=== PATIENT | female | born 2000 | race Caucasian/White ===

== ENCOUNTER 2018-11-08 22:26 | Emergency (ER) | payer BC, SELFPAY ==
[2018-11-08 22:26] VITALS: BP 130/77; PULSE 88; RESP 15; TEMP 37.1; BMI 28.1
--- NOTE | 2018-11-08 22:50 | ED.DCSUM_ITS ---
History of Present Illness Chief Complaint: General Illness Informant: Patient Pain: Pelvic Pain Onset: Days - 3 Context: Gradual Onset Timing: Waxes and wanes Quality: Cramping Current Severity: Mild Maximum Severity: Mild Relieved by: NSAIDS Issue: Vaginal bleeding Context: Gradual Onset Timing: Intermittent Current Severity: Mild Maximum Severity: Mild Associated Symptoms: Negative for: Dysuria, Frequency, Urgency, Hematuria Sexually: Active Control: IUD Narrative: Patient had a copper IUD placed at the local [facility] 3 days ago, and subsequently started having vaginal spotting which turned into mild/light bleeding less than a menstrual cycle, as well as pelvic cramping, 5-10 bouts of watery nonbloody diarrhea per day, nausea, fevers. They have been subjective. She also works at a daycare. There have been no known sick contacts with the symptoms there. She is healthy otherwise. She denies any other vaginal discharge. Past Medical History - Allergies and Home Meds Allergies/Adverse Reactions: Allergies No Known Allergies Allergy (Verified 11/08/18 22:30) Primary Care Physician: Will Spann MD [Primary Care Provider] - Smoking Status: Never smoker Review of Systems General: Reports: Fever, Malaise, Subjective. Denies: Chills, Sweats Eyes: Denies: Visual changes - bilaterally, Diplopia ENT: Denies: Rhinorrhea, Sore throat Cardiovascular: Denies: Chest pain, Palpitations Respiratory: Denies: Dyspnea, Cough, Dyspnea on exertion Gastrointestinal: Reports: Abdominal pain, Nausea, Diarrhea. Denies: Vomiting, Melena, Hematochezia Genitourinary: Reports: - - vaginal bleeding. Denies: Dysuria, Hematuria, Frequency Musculoskeletal: Denies: Back pain, Extremity Pain Skin: Denies: Rash, Wounds Neurological: Denies: Headache, Weakness, Numbness Physical Exam Vital Signs/Narrative: Vital Signs Temp Pulse Resp BP 11/08/18 22:26 98.7 F 88 15 130/77 H Diagnostic/Tx/Re-eval - Medical Decision/Diagnostic Studies Patient was treated with IV fluids, Zofran, Bentyl, Toradol. She feels better. I discussed with a nurse ornamental metal erector on-call for Dr. Tucker, she states that aside from the diarrhea, these are pretty typical symptoms after placement of a copper IUD. She is welcome to follow-up, and given their office information. Given a prescription for Zofran, I suspect she has a viral syndrome on top of her s ymptoms from IUD placement. ED Disposition - Plan for ED Patient: Disposition: Home or Assisted Living Diagnosis: Gastroenteritis, Vaginal bleeding Instructions: GASTROENTERITIS, Viral (4y-Adult), Control: IUD (Intrauterine Device) Prescriptions: Ondansetron [Zofran] 8 mg PO Q8H PRN #12 tab PRN Reason: Nausea/Vomiting Prescription Printed Referrals: Liss Tucker DO [STAFF PHYSICIAN] - 1 Week if not improving
[2018-11-08] MEDS: 0.9% Normal Saline 1,000 ML 999 ML IV (22:58)
[2018-11-08] MEDS: Dicyclomine 10 MG Capsule 20 MG PO (22:58)
[2018-11-08] MEDS: Ondansetron 4 MG/2 ML Vial IV (22:59)
[2018-11-08] MEDS: Ketorolac 30 MG/ML Syringe IV (23:00)
[2018-11-09 00:26] VITALS: BP 127/73; PULSE 78; RESP 16; O2SAT 100
== END 2018-11-09 00:28 | disposition home or self-care (01) ==
PROVIDERS: Emergency Provider Emergency Medicine; Family Provider Family Medicine; PCP Family Medicine
DX: K52.9 Noninfective gastroenteritis and colitis, unspecified (principal); N93.9 Abnormal uterine and vaginal bleeding, unspecified
CPT/HCPCS: 96361; 96374; 96375; 99283; J7030; J2405

== ENCOUNTER 2019-05-14 20:06 | Emergency (ER) | payer BC, SELFPAY ==
[2019-05-14 20:06] VITALS: BP 139/74; PULSE 82; RESP 18; TEMP 37.1; O2SAT 98; BMI 31.7
--- NOTE | 2019-05-14 20:21 | ED.DCSUM_ITS ---
History of Present Illness Chief Complaint: Sore Throat Informant: Patient Onset: Days Current Severity: Moderate Maximum Severity: Moderate Narrative: She presents with sore throat that is been ongoing for the past several days. She states tonight she feels increased pain specifically on the left side and feels at the left side of her neck is swollen. She had chills yesterday. No fever. She does work in a daycare. Past Medical History - Allergies and Home Meds Allergies/Adverse Reactions: Allergies No Known Allergies Allergy (Verified 05/14/19 20:08) Primary Care Physician: Will Spann MD [Primary Care Provider] - 1 Week if not improving Past Medical History: None Smoking Status: Never smoker Review of Systems General: Reports: Chills. Denies: Fever Eyes: Denies: Visual changes - bilaterally ENT: Reports: Sore throat. Denies: Bilateral ear pain Cardiovascular: Denies: Chest pain Respiratory: Denies: Dyspnea, Cough Gastrointestinal: Denies: Abdominal pain, Nausea, Vomiting, Diarrhea Musculoskeletal: Denies: Extremity Pain Skin: Denies: Rash Neurological: Denies: Headache Allergy: Denies: Uticaria Physical Exam Vital Signs/Narrative: Vital Signs Temp Pulse Resp BP Pulse Ox 05/14/19 20:06 98.8 F 82 18 139/74 H 98 Inital Vital Signs reviewed: Yes General: Well nourished, Well developed Head: Normocephalic ENT: Moist mucous membranes, TM's clear, - - 2+ tonsils. Mild erythema. Uvula midline. Neck: - - Mild cervical lymphadenopathy. Cardiovascular: Regular rate, Regular rhythm Respiratory: No distress, CTA bilaterally Abdomen: Soft, Nontender, Normal bowel sounds Extremities: Nontender Skin: Normal color, No rash Neurological: Alert, Oriented x3 Psychological: Normal affect Diagnostic/Tx/Re-eval - Medical Decision Making Patient presents with symptoms concerning for strep and works in a daycare where she is exposed to multiple illnesses. She will be covered with a course of Pen- Vee K. She is given a small dose of Decadron here to help with throat pain. ED Disposition - Plan for ED Patient: Disposition: Home or Assisted Living Diagnosis: Pharyngitis Instructions: PHARYNGITIS, Strep (Presumed) Prescriptions: Penicillin V Potassium 500 mg PO BID #20 tab Prescription Printed Referrals: Will Spann MD [Primary Care Provider] - 1 Week if not improving
[2019-05-14] MEDS: dexAMETHasone 4 MG Tablet 2 MG PO (20:37)
[2019-05-14] MEDS: Penicillin Vk 250 MG Tablet 500 MG PO (20:37)
[2019-05-14 20:39] VITALS: BP 139/74; PULSE 82; RESP 16; O2SAT 98
== END 2019-05-14 20:40 | disposition home or self-care (01) ==
PROVIDERS: Emergency Provider Emergency Medicine; Family Provider Family Medicine; PCP Family Medicine
DX: J02.9 Acute pharyngitis, unspecified (principal)
CPT/HCPCS: 99283

== ENCOUNTER 2022-07-08 23:54 | Emergency (ER) | payer OTHER, SELFPAY ==
[2022-07-08 23:55] VITALS: BP 131/71; PULSE 106; RESP 15; TEMP 37; O2SAT 100; BMI 32.5
--- NOTE | 2022-07-09 00:21 | CT_ITS ---
EXAM: CT ABDOMEN AND PELVIS WITH INTRAVENOUS CONTRAST CLINICAL INDICATION: RLQ Pain TECHNIQUE: Helically acquired images were obtained of the abdomen and pelvis with intravenous contrast. This CT exam was performed using one or more of the following dose reduction techniques: automated exposure control, adjustment of the mA and/or kV according to patient size, and/or use of iterative reconstruction technique. This report was created using [employer] report generation technology. CONTRAST: IV 100mL [id number]-[id number] COMPARISON: 05/01/2017 FINDINGS: LOWER THORAX: Unremarkable. Lung bases are clear. No cardiomegaly. No significant pericardial effusion. ABDOMEN: LIVER: Unremarkable. Homogeneous. No focal mass. GALLBLADDER AND BILE DUCTS: Unremarkable. No calcified gallstones. No gallbladder distention or wall edema. No intra- or extrahepatic biliary ductal dilation. PANCREAS: Unremarkable. No focal cystic or solid mass. SPLEEN: Unremarkable. Normal size without focal cystic or solid mass. ADRENALS: Unremarkable. No nodules. KIDNEYS AND URETERS: Unremarkable. Normal renal size and position. No urinary stone or renal obstruction. STOMACH AND BOWEL: Unremarkable. No stomach or bowel distention. No focal inflammatory change. PELVIS: APPENDIX: The appendix is normal. BLADDER: Unremarkable. REPRODUCTIVE: IUD in the uterus. There is a 3.4 cm left ovarian cyst. ABDOMEN and PELVIS: INTRAPERITONEAL SPACE: Tiny amount of free fluid in the pelvis. No free air. BONES/JOINTS: Unremarkable. No suspicious lytic or blastic abnormality. SOFT TISSUES: Unremarkable. No discrete abdominal or pelvic wall hernia. VASCULATURE: Unremarkable. Abdominal aorta is non-dilated. LYMPH NODES: Unremarkable. No enlarged lymph nodes. CT/Abdomen/Pelvis W IV Cont ONLY IMPRESSION: There is a 3.4 cm left ovarian cyst. Otherwise unremarkable CT of the abdomen/pelvis. Electronically Signed: Jose Mann MD at 2:10 EST ,
--- NOTE | 2022-07-09 00:24 | ED.VIS.GI ---
HPI HPI - GI History of Present Illness Chief Complaint: Abd Pain Informant: patient Narrative Narrative: Patient presents with abdominal pain. She states yesterday she had some nausea but her abdomen was not hurting her cramping at all. This morning she woke up and she was very nauseated. She did vomit. No blood. She states she started to hurt in my bowels. But she does point to the middle but also the right lower quadrant. It is definitely pain in the right lower quadrant but it does not sound like it is dramatically moved there. It is just gotten progressively worse. She has some discomfort in the back in the middle but its not in the CVA area. She has had some diarrhea without blood. She has had fever up to 100.6. She has no prior abdominal surgery. Last menstrual cycle was about 3 weeks ago and normal. She has no vaginal bleeding or discharge. When she urinates she has some pain in the right lower quadrant but its not bladder or urethral pain or dysuria. She has never had kidney stones. She has no trauma. PFSH PFSH Medical History no medical history Home Medications dicyclomine 10 mg capsule 20 mg PO TID PRN cramps #10 CAPSULES 07/09/22 [Rx Last Taken Unknown] ondansetron 4 mg disintegrating tablet 4 mg PO Q8H PRN PRN Nausea #10 tabs 07/09/22 [Rx Last Taken Unknown] Allergy/AdvReac Type Severity Reaction Status Date / Time No Known Allergies Allergy Verified 07/08/22 23:59 Surgical History no surgical history Social History Smoking Status: Never smoker ROS ROS ED Constitutional Constitutional ED: Reports fever(s) ENT ENT ED: Denies rhinorrhea or sore throat Cardiovascular Cardiovascular: Denies chest pain or palpitations Respiratory/Chest Respiratory/Chest: Denies cough or dyspnea Gastrointestinal Gastrointestinal: Reports abdominal pain, diarrhea, nausea and vomiting; Denies constipation or melena Genitourinary Genitourinary ED: Reports other Details: Patient has pain in the abdomen with urination but no true dysuria. No change in color or odor. She states she is might be urinating a little bit less but she has not been eating or drinking much today ; Denies dysuria, hematuria or urinary frequency Musculoskeletal Musculoskeletal: Reports back pain; Denies myalgias Integumentary Denies rash Neurologic Neurologic: Denies headache(s) Endocrine Endocrinology: Denies polydipsia or polyuria Hematologic/Lymphatic Hematologic/Lymphatic: Denies easy bleeding or easy bruising Allergic/Immunologic Allergic/Immunologic ED: Denies urticaria EXAM Physical Exam Narrative Exam Narrative: Patient awake alert laying on bed no acute distress. HEENT shows minimally dry mucous membranes Eyes have disconjugate gaze that is not new. Lungs are clear bilaterally. Heart is regular but is a little tachycardic. Abdomen is soft with normal bowel sounds. She does have some tenderness toward the right lower quadrant but no rebound guarding or bump tenderness. I really do not get CVA tenderness. shows no significant suprapubic or CVA tenderness. Extremities show no edema. Const Vital Signs: 07/08/22 23:55 07/09/22 02:54 Temperature 98.6 F Temperature Source Temporal Pulse Rate 106 H 99 Respiratory Rate 15 16 Blood Pressure 131/71 H 132/70 H Blood Pressure Mean 91 90 Pulse Ox 100 97 Oxygen Delivery Method Room Air Room Air MDM MDM MDM Narrative Medical decision making narrative: My independent interpretation of the patient's CT shows no sign of obstruction ileus or free air. Her appendix does appear to be normal. I do not see stranding or inflammation in that area. There is a right ovarian cyst I note. Final reading by radiology is overall normal except for a left ovarian cyst. I looked back at the CT and I think I see this more on the right. Her CBC showed normal white count. Hemoglobin was just minimally low at 11.5 which nonspecific. Electrolytes are normal including renal function. Glucose is minimally elevated at 110. Liver function test are normal. is negative. I talk with this patient again. My concern is that the pain on the right side started rather quickly. She states it is much better now. She has minimal if any tenderness. She got morphine but it was sometime ago. However, I am concerned with her right-sided pain, a cyst that I believe is on the right, and the possibility of torsion. I think we should get an ultrasound why she is here. This is pending. Ultrasound of the pelvis showed right ovary slightly larger than the left. There was good blood flow to both showing no sign of torsion. I talked with the patient further. 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 I think with her pain diarrhea and vomiting this is likely the source of her symptoms. She can follow-up for the cyst but I do not think that requires acute treatment. There is no sign of appendicitis. We will get her meds to go for cramping and nausea. Lab Data Attestation: I reviewed the patient's lab results. Labs: Laboratory Results - last 24 hr 07/09/22 07/09/22 07/09/22 00:10 00:10 00:32 WBC 8.2 RBC 4.40 Hgb 11.5 L Hct 37.1 MCV 84.3 MCH 26.1 L MCHC 31.0 L RDW Std Deviation 44.1 H RDW Coeff of Jose Luis 14.2 Plt Count 276 MPV 10.0 Immature Gran % (Auto) 0.500 Neut % (Auto) 80.3 H Lymph % (Auto) 12.6 L [place] % (Auto) 6.0 Eos % (Auto) 0.4 Baso % (Auto) 0.2 Absolute Neuts (auto) 6.6 Absolute Lymphs (auto) 1.03 Nucleated RBC % 0 Sodium 136 Potassium 3.6 Chloride 105 Carbon Dioxide 27.0 Anion Gap 4 L BUN 9 Creatinine 0.73 Estim Creat Clear Calc 93.99 Est GFR (MDRD) Af Amer 126 Est GFR (MDRD) Non-Af 104 BUN/Creatinine Ratio 12.4 Glucose 110 H Calcium 9.1 Total Bilirubin 0.40 AST 15 ALT 23 Alkaline Phosphatase 80 Total Protein 7.5 Albumin 3.9 Globulin 3.6 Albumin/Globulin Ratio 1.1 Serum , Qual NEGATIVE Urine Color Urine Clarity Urine pH Ur Specific [place] Urine Protein Urine Glucose (UA) Urine Ketones Urine Occult Blood Urine Nitrite Urine Bilirubin Urine Urobilinogen Ur Leukocyte Esterase Urine RBC Urine WBC Ur Squamous Epith Cells Urine Bacteria Urine Mucus 07/09/22 00:32 WBC RBC Hgb Hct MCV MCH MCHC RDW Std Deviation RDW Coeff of Jose Luis Plt Count MPV Immature Gran % (Auto) Neut % (Auto) Lymph % (Auto) [place] % (Auto) Eos % (Auto) Baso % (Auto) Absolute Neuts (auto) Absolute Lymphs (auto) Nucleated RBC % Sodium Potassium Chloride Carbon Dioxide Anion Gap BUN Creatinine Estim Creat Clear Calc Est GFR (MDRD) Af Amer Est GFR (MDRD) Non-Af BUN/Creatinine Ratio Glucose Calcium Total Bilirubin AST ALT Alkaline Phosphatase Total Protein Albumin Globulin Albumin/Globulin Ratio Serum , Qual Urine Color Yellow Urine Clarity Clear Urine pH 6.0 Ur Specific [place] 1.015 Urine Protein Negative Urine Glucose (UA) Normal Urine Ketones Negative Urine Occult Blood 10 H Urine Nitrite Negative Urine Bilirubin Negative Urine Urobilinogen Normal Ur Leukocyte Esterase Negative Urine RBC 0-5 SEEN Urine WBC 0 SEEN Ur Squamous Epith Cells 0-5 SEEN Urine Bacteria 1+ Urine Mucus 0 SEEN Radiography Diagnostic Testing: Clinical Impression(s) from Imaging Studies Abdomen/Pelvis CT 07/09/22 00:21 IMPRESSION: There is a 3.4 cm left ovarian cyst. Otherwise unremarkable CT of the abdomen/pelvis. Electronically Signed: Jose Mann MD at 2:10 EST Reading Location ID and State: [facility] [place] Tel , Service support , Transvaginal US 07/09/22 02:50 IMPRESSION: No evidence of ovarian torsion or other acute findings in the pelvis. Electronically Signed: Jose Mann MD at 4:16 EST , Discharge Plan Triage Chief Complaint: Abd Pain ED Provider: Rikki Barbosa Dx/Rx/DC Orders Clinical Impression: Abdominal pain, Nausea vomiting and diarrhea, Ovarian cyst Instructions: ED Abdominal Pain Unkn Cause Fem, ED Gastroenteritis, Viral (Adult) Prescriptions: New dicyclomine 10 mg capsule 20 mg PO TID PRN (Reason: cramps) Qty: 10 0RF ondansetron [ondansetron] 4 mg tablet,disintegrating 4 mg PO Q8H PRN PRN (Reason: Nausea) Qty: 10 0RF Primary Care Provider: Will Spann Referrals: Will Spann MD [Primary Care Provider] - 1-2 Days if not improving Disposition Disposition: Home, Self Care
[2022-07-09] MEDS: Ondansetron 4 MG/2 ML Vial IV (00:30)
[2022-07-09] MEDS: 0.9% Normal Saline 1,000 ML 1000 ML IV (00:30)
[2022-07-09] MEDS: Morphine 4 MG/ML Syringe IV (00:30)
[2022-07-09 00:31] LABS: Absolute Lymphocyte Count 1.03 X10^3/uL (0.83-4.51); Absolute Neutrophil Count 6.6 X10^3/uL (2.0-7.7); Basophil# 0.02 X10^3/uL; Basophil% 0.2 % (0-1); Eosinophil# 0.03 X10^3/uL; Eosinophils% 0.4 % (0-5); Hematocrit 37.1 % (37-47); Hemoglobin 11.5 g/dL (12.0-15.0); Lymphocyte # 1.03 X10^3/ul (0.83-4.51); Lymphocyte % 12.6 % (19-41); Mean Corpuscular Hgb 26.1 pg (27.0-32.0); Mean Corpuscular Volume 84.3 fL (81-99); Monocyte# 0.49 X10^3/uL; NRBC Flagged by Analyzer 0 % (0-5); Neutrophil # 6.56 X10^3/uL (2.7-7.7); Neutrophil % 80.3 % (47-70); Platelet Count 276 K/mm3 (150-450); RBC Distribution Width CV 14.2 % (11.6-14.6); RBC Distribution Width SD 44.1 fl (35.1-43.9); White Blood Count 8.2 K/mm3 (4.4-11.0)
[2022-07-09 00:36] LABS: Mucous, Urine 0 SEEN /hpf (<or=2+); White Blood Cells 0 SEEN /hpf (0-5)
[2022-07-09 00:55] LABS: Color, Urine Yellow (Yellow); Glucose, Dipstick Normal (Normal); Ketone-Dipstick Negative (Negative); Leukocyte Esterase-Dipstick Negative /ul (Negative); Nitrite-Dipstick Negative (Negative); Occult Blood-Urine 10 /ul (Negative); Protein-Dipstick Negative (Negative); Specific Gravity, Urine 1.015 (1.002-1.030); Urine Bilirubin Dipstick Negative (Negative); Urine Clarity Clear (Clear); Urine Urobilinogen Normal (Normal)
[2022-07-09 01:07] LABS: ALB/GLOB Ratio 1.1 RATIO (0.9-2.4); AST(SGOT) 15 U/L (15-37); Alanine Aminotransfer ALT/SGPT 23 U/L (13-56); Albumin, Serum 3.9 g/dL (3.2-5.0); Alkaline Phosphatase 80 U/L (45-117); Anion Gap 4 (5-15); BUN 9 mg/dL (7-18); BUN/Creat Ratio 12.4 RATIO (10-20); Calcium,Total 9.1 mg/dL (8.5-10.1); Chloride 105 mmol/L (98-107); Creatinine, Serum 0.73 mg/dL (0.55-1.02); EST Glomerular Filtration Rate 104 mL/min (>60); Est Glom Filt Rate - Afr Amer 126 mL/min (>60); Estimated Creatinine Clearance 93.99 ml/min; Globulin 3.6 g/dL (2.2-4.2); Glucose 110 mg/dL (74-106); Potassium 3.6 mmol/L (3.5-5.1); Protein, Total 7.5 g/dL (6.4-8.2); Sodium Level 136 mmol/L (136-145)
[2022-07-09 01:25] LABS: Bacteria 1+ /hpf (None Seen); Red Blood Cells-Urine 0-5 SEEN /hpf (0-5); Squamous Epithelial Cells - UA 0-5 SEEN /hpf (5-10)
[2022-07-09 01:30] LABS: Internal QC Validated? YES +Cl - CLEAR BKGD; Pregnancy, Serum, hCG Quali. NEGATIVE Negative
--- NOTE | 2022-07-09 02:50 | US_ITS ---
EXAM: US PELVIS TRANSVAGINAL CLINICAL INDICATION: RLQ Pain, ? torsion TECHNIQUE: Transvaginal pelvic ultrasound was performed with grayscale and color Doppler imaging. Transvaginal imaging was used for better evaluation of the endometrium and adnexa. This report was created using [employer] technology. COMPARISON: None. FINDINGS: UTERUS/CERVIX: 7.6 x 5.8 x 4.9 cm. IUD in the uterus. Endometrium: Thickened, measuring up to 1.8 cm, which may be related to the patient''s menstrual cycle. There is no uterine mass. RIGHT OVARY: 3.0 x 4.0 x 2.1 cm, with normal Doppler flow. Blood flow is present in the right ovary. LEFT OVARY: 3.4 x 2.7 x 2.7 cm, with normal Doppler flow. Blood flow is present in the left ovary. FREE FLUID: None. US/Transvaginal Non- IMPRESSION: No evidence of ovarian torsion or other acute findings in the pelvis. Electronically Signed: Jose Mann MD at 4:16 EST ,
[2022-07-09 02:54] VITALS: BP 132/70; PULSE 99; RESP 16; O2SAT 97
== END 2022-07-09 04:55 | disposition home or self-care (01) ==
PROVIDERS: Emergency Provider Emergency Medicine; PCP Family Medicine; Visit Provider Emergency Medicine
DX: R10.9 Unspecified abdominal pain (principal); R11.2 Nausea with vomiting, unspecified; R19.7 Diarrhea, unspecified; N83.201 Unspecified ovarian cyst, right side
CPT/HCPCS: 74177; 76830; 80053; 81001; 84703; 85025; 93976; 96361; 96374; 96375; 99282; J7030; Q9967; A4216; J2405

== ENCOUNTER → 2022-09-05 | Outpatient (CLI) | payer OTHER, SELFPAY | END | disposition home or self-care (01) | LOC: LABSPEC 13:25 | PROVIDERS: PCP Nurse Practitioner Family; Referring Provider Nurse Practitioner Family; Visit Provider Nurse Practitioner Family | DX: R31.9 Hematuria, unspecified (principal) | CPT/HCPCS: 87077; 87086; 87088; 87186 ==